=== PATIENT | male | born 1960 | race Caucasian/White ===

== ENCOUNTER → 2018-04-16 08:00 | Outpatient (CLI) | payer OTHER, SELFPAY ==
--- NOTE | 2018-04-16 08:00 | PROSBIL_PTH ---
PATIENT: GRAY GIBBS LOC: [facility] U#:[id number] AGE/SX: 65/M ROOM: RE04/16/[address]: Dr. Clayton Le MD : 1960 BED: DIS: SPEC #: [id number] RECD: 04/16/18 17:09 STATUS: LEOBARDO HOOD #: [id number] ATUL: 04/16/18 08:[address]: Clayton Le DEPT: SURGICAL PATHOLOGY RECD BY: Tim Quevedo ENTERED: 04/17/18 10:22 SP TYPE: PROST BX MARLINE DR: Lisa Bautista, MEASURING MACHINE OPERATOR-C Tissues: A - PROSTATE RIGHT B - PROSTATE RIGHT C - PROSTATE RIGHT D - PROSTATE LEFT E - PROSTATE LEFT F - PROSTATE LEFT Procedures: PROSTATE BX HEADER OPERATION: Prostate biopsy PRE-OP DIAGNOSIS: Elevated PSA TISSUE SUBMITTED: A - Right apex, B - Right mid, C - Right base, D - Left apex, E - Left mid, F - Left base MICROSCOPIC DIAGNOSIS A. Right prostate, apex, core biopsy: Prostatic adenocarcinoma: [place] grade: 3+3=6 Number of cores involved: 1 out of 3 Proportion of tissue involved: ~25% Perineural invasion: Not identified. Greatest tumor length: 0.4 cm B. Right prostate, mid, core biopsy: Prostatic adenocarcinoma: [place] grade: 3+4=7 Number of cores involved: 2 out of 2 Proportion of tissue involved: ~60% Perineural invasion: Not identified. Greatest tumor length: 0.8 cm, discontinuous Focal high-grade prostatic intraepithelial neoplasia (HGPIN). C. Right prostate, base, core biopsy: Prostatic adenocarcinoma: [place] grade: 4+3=7 Number of cores involved: 2 out of 2 Proportion of tissue involved: >95% Perineural invasion: present, focal Greatest tumor length: 1 cm Focal high-grade prostatic intraepithelial neoplasia (HGPIN). D. Left prostate, apex, core biopsy: Prostatic tissue, negative for malignancy. E. Left prostate, mid, core biopsy: Prostatic tissue, negative for malignancy. F. Left prostate, base, core biopsy: Prostatic adenocarcinoma: [place] grade: 3+3=6 Number of cores involved: 1 out of 3 Proportion of tissue involved: ~40% Perineural invasion: Not identified. Greatest tumor length: 0.7 cm, discontinuous Focal high-grade prostatic intraepithelial neoplasia (HGPIN). SJ:johnny 04/20/18 COMMENT Case has been reviewed in consultation with Dr. Maldonado who concurs with the above diagnosis. [id number] MICROSCOPIC DESCRIPTION Slides are reviewed. GROSS DESCRIPTION A - Received is one container designated prostate, right apex. The specimen consists of three elongated fragments of light barnett-white soft tissue measuring 0.5 to 1 cm in length and 0.1 cm in diameter. The specimen is totally submitted in one cassette. B - Received is one container designated prostate, right mid. The specimen consists of two elongated fragments of light barnett-white soft tissue each measuring 1.2 cm in length and 0.1 cm in diameter. The specimen is totally submitted in one cassette. C - Received is one container designated prostate, right base. The specimen consists of two elongated fragments of light barnett-white soft tissue each measuring 1 cm in length and 0.1 cm in diameter. The specimen is totally submitted in one cassette. D - Received is one container designated prostate, left apex. The specimen consists of two elongated fragments of light barnett-white soft tissue measuring 0.5 and 1 cm in length and 0.1 cm in diameter. The specimen is totally submitted in one cassette. E - Received is one container designated prostate, left mid. The specimen consists of one elongated fragment of light barnett-white soft tissue measuring 1 cm in length and 0.1 cm in diameter. The specimen is totally submitted in one cassette. F - Received is one container designated prostate, left base. The specimen consists of three elongated fragments of light barnett-white soft tissue each measuring 0.5 to 0.8 cm in length and 0.1 cm in diameter. The specimen is totally submitted in one cassette. / YENNY:johnny 04/17/18 TC:0 CPT: 16713 x6 ADDENDUM ADDENDUM ADDENDUM ADDENDUM ADDENDUM ADDENDUM ADDENDUM ADDENDUM 05/29/2018 11:03 ADDENDUM 05/29/2018 11:03 ADDENDUM 05/29/2018 11:03 ADDENDUM 05/29/2018 11:03 ADDENDUM 05/29/2018 11:03 An order for Oncotype testing was received from Dr. Ridley. This necessitated case review, block and slide selection by pathologist at [facility]. Genomic Prostate Score = 57 Results of the complete Oncotype testing ([employer] [employer] [facility] [employer] report) are viewable in EMR under: Reports - Pathology - Lab Pathology Report, Scanned.
--- OUTSIDE RECORDS SUMMARY | 2018-06-02 22:19 | XMS RPT_ITS ---
:1960 Author Organization OHIP Care Team Providers Name Role Phone JULIAN SEGOVIA, MS. JOSE JUAN Fitzgerald Attending Unavailable JULIAN SEGOVIA, MS. JOSE JUAN Fitzgerald Primary Care Unavailable DAVID WEBER CNP Attending Unavailable JULIAN SEGOVIA, MSParth MANZANO SParth Primary Care Unavailable TRUDI RIDLEY Attending Unavailable TRUDI RIDLEY Attending Unavailable Clayton Le Attending Unavailable Clayton Le Referring Unavailable Jose Juan Bautista [employer] Primary Care Unavailable Clayton Le Attending Unavailable Clayton Le Referring Unavailable Jose Juan Bautista [employer] Primary Care Unavailable Clayton Le Attending Unavailable Clayton Le Referring Unavailable Jose Juan Bautista [employer] LABORFrankyC Primary Care Unavailable PROBLEMS PROBLEMS DATE TYPE CONDITION / CODE ATTENDING STATUS SOURCE 04/15/2018 Active Unknown / TRUDI RIDLEY Active [facility] UNK(Unknown) [facility] Repository PROCEDURES PROCEDURES No Procedure Records FoundRESULTS RESULTS CNOV Observed: 05/18/2018 Status: COMPLETED Source: [place] 11:45 AM [facility] REPOSITORY Office Visit (UROLMD) GRAY GIBBS ([id number]) 1960 M Date Time Provider Department 05/18/18 11:45 AM TRUDI RIDLEY V UROLMD During your visit today, we recorded the following information about you: Weight Height 95.3 kg 1.829 m Manisha Burch Ma 05/18/2018 11:58 AM Signed Patient presents with: Established Patient: elevated PSA/second opinion/discuss cancer DX Referring Provider: SELF [200] Allergies As of Date: 05/18/2018 Noted Allergy Reaction SIMVASTATIN 05/18/2018 14 - Other: See Comments Comments: Muscle pain Date Reviewed: 04/15/2018 Reviewed by: Teagan Carter RN - Fully Assessed Reason for Visit: Established Patient [175] Cmt: elevated PSA/second opinion/discuss cancer DX Primary Visit Diagnosis:Prostate cancer (HCC) [C61] Other Visit Diagnosis:Elevated prostate specific antigen (PSA) [R97.20] Prescriptions as of 05/18/2018 Sig: ASPIRIN 81 MG TABLET,DELAYED * Take 81 mg by mouth once priyanka* CINNAMON ORAL Take by mouth. MAGNESIUM CITRATE ORAL Take by mouth. NIACIN ORAL Take by mouth. OMEGA 3-6-9 ORAL Take by mouth. VITAMIN E 400 UNIT CAPSULE Take 400 Units by mouth once * ZINC ACETATE ORAL Take by mouth. VITAMIN D3 ORAL Take by mouth. FENOFIBRATE MICRONIZED 134 MG* Take 134 mg by mouth once ki* Problem List As Of Date: 05/18/2018 (None) Visit Notes: >> Manisha Burch Ma Mon May 18, 2018 11:58 AM Status: Signed Patient presents with: Established Patient: elevated PSA/second opinion/discuss cancer DX Encounter Status:Closed by TRUDI RIDLEY MD, FACS, V on 05/18/18 PROGRESS Observed: 05/18/2018 Status: COMPLETED Source: [place] 12:00 AM [facility] REPOSITORY HNO ID: [id number] Author: Trudi Ridley V Service: Urology Author Type: Physician Type: Progress Notes Filed: 05/19/2018 11:49 AM Note Text: [facility] NOTE DEPARTMENT OF UROLOGY [place] NAME: RONNIE GIBBS NO.: [id number] DATE OF SERVICE: 05/18/2018 Patient last seen April 15, 2018. A 58-year-old male following up from the 2nd opinion regarding an elevated PSA from [facility] under the care of Dr. Le. Outside records were brought for presentation to discuss options for patient's management of recently diagnosed prostate cancer accompanied by his . Review of systems: Eyes, ears, nose, and throat, cardiovascular, respiratory, integumentary, neurological, extremities and abdominal systems are negative. Denies recreational drug use or smoking. We do know that his previous PSA was 7.0. He underwent a prostate biopsy in [facility] and the result came back showing 7/12 cores positive with several cores higher than 60% percentage of the core biopsy with malignancy and with [place] 6, [place] 7, 3+3 as well as 4+3 and Jalen 6 with high grade PIN. Patient was advised that in my estimation a radical prostatectomy would be the way to proceed. We discussed both incontinence and erectile dysfunction as well as penile shortening in all options related to complications regarding the surgery. Questions were answered and the reclarification of what he heard in [place] was attempted. We did discuss the benefit of obtaining genetic testing with [facility] genetic testing and he agrees that he would like to have that information. This will be submitted for evaluation. A CT scan of his abdomen and pelvis demonstrated no evidence of adenopathy but degenerative disease in his spine. No new PSA is available. He is able to maintain an erection. We discussed penile rehabilitation both pre-and post surgery. Genital examination is deferred. Eyes, ears, nose, and throat, cardiovascular, respiratory, integumentary, neurological, extremities and abdominal systems are within normal limits. The bulk of the conversation was spent in consultation regarding options, IMRT, interstitial brachytherapy, active surveillance. In my impression as Dr. Le's was that radical prostatectomy is how he should proceed. The genetic testing most likely give us just 1 more a bit of information to validate that decision. Questions were answered. Total consultation time was approximately 50 minutes. He will follow up after surgery. DISCHARGE DIAGNOSES: 1. [place] 6, and 7 prostate cancer with elements of 4+3. 2. Elevated prostate-specific antigen. Follow up as noted. DICTATED BY: Trudi Ridley M.D. GC/Domingo JOB# [id number] BONE SCAN WHOLE Observed: 05/01/2018 Status: F Source: [place] BODY 10:21 AM [facility] REPOSITORY [facility] Imaging Services [address] [place] [id number] Bone Scan Whole Body MR#: [id number] Acct: [id number] Name: GRAY GIBBS Rep #: [id number] : 1960 M 58 From: Giuseppe Lee DO PCP: Jose Juan Marc Status: REG CLI Study: Bone Scan Whole Body Date of Exam: 05/01/18 Exam# [id number] Ordering Dr: Clayton Le MD CLINICAL: 58-year-old male with reported history of carcinoma of the prostate. WHOLE BODY 99m Tc MDP RADIONUCLIDE BONE SCINTIGRAPHY COMPARISON: CT of the abdomen-pelvis report 04/24/2018 FINDINGS: Following the intravenous administration of 25.7 mCi of 99m Tc MDP, whole body bone images reveal: 1. Increased radiopharmaceutical concentration is identified in the mid-lower cervical spine posteriorly on the left and right, fifth lumbar vertebra posteriorly on the left and right, posterior midline sacrum, acromioclavicular and sternoclavicular compartments of both shoulders, bilateral elbow articulations, right-left knees. 2. The remaining skeletal structures are scintigraphically unremarkable with normal-appearing renal images and urinary bladder activity identified. NM/Bone Scan Whole Body IMPRESSION: 1. The increase in radiopharmaceutical concentration defined in the cervical and lumbar spine, sacrum, bilateral shoulder and elbow articulations, knees bilaterally is most consistent with degenerative arthritis. 2. There is no definitive typical scintigraphic evidence of skeletal metastatic disease on the current examination. Electronically Signed: Giuseppe Lee DO at 8:27 EST Tel , Service support , CC: Jose Juan ZAYAS; Clayton Le MD Blade Balancer: Signed CREATININE FINGERSTICK Collected: 04/24/2018 Status: F Source: [place] 5:49 PM [facility] REPOSITORY TYPE CODE TESTS RESULT OUT OF REFERENCE UNITS RANGE LAB L9100.0210 0.70-1.30 mg/dL High CREATININE WB 1.4 Performed By: #### L9100.0200 #### [facility] Point of Care [address] [place] [address] ABDOMEN/PELVIS WITH Observed: 04/24/2018 Status: F Source: [place] CONTRAST 5:39 PM [facility] REPOSITORY [facility] Imaging Services [address] [place] [address] Abdomen/Pelvis WITH Contrast MR#: [id number] Acct: [id number] Name: GRAY GIBBS Rep #: [id number] : 1960 M 58 From: Tyron Verduzco MD PCP: Jose Juan Marc Status: REG CLI Study: Abdomen/Pelvis WITH Contrast Date of Exam: 04/24/18 Exam# [id number] Ordering Dr: Clayton Le MD STUDY: CT ABDOMEN AND PELVIS WITH CONTRAST REASON FOR EXAM: Male, 58 years old. Prostate cancer. RADIATION DOSAGE (If Supplied By Facility): CTDIvol = ( 17.53 ) mGy, DLP = ( 1118.43 ) mGycm TECHNIQUE: Transaxial images were obtained from the dome of the diaphragm to the symphysis pubis without oral contrast. 100ML ml of Isovue 300 contrast was administered. Sagittal and coronal images were reconstructed. Individualized dose optimization techniques were used for this CT. COMPARISON: None. FINDINGS: The visualized lung bases are unremarkable. The visualized portions of the heart are within normal limits. Mild diffuse homogeneous hypoattenuation of the liver parenchyma. Calcified stone layering in a nondistended, nonthickened gallbladder. No biliary duct dilatation. Normal spleen. Normal pancreas. Normal bilateral adrenal glands. Hypoattenuated lesions within both kidneys measuring near water density. Normal bilateral ureters. Normal visualized stomach. Normal small intestine. Normal colon. The appendix is visualized and appears normal. Normal abdominal aorta. Normal inferior vena cava. Normal retroperitoneum. There is mild haziness of the root of the mesentery in the left mid abdomen with shotty mesenteric lymph nodes. Normal urinary bladder. Prostatic calcifications. Normal abdominal wall. Normal osseous structures. Multilevel degenerative change of the spine. Partial sacralization on the left at L5 with pseudoarthrosis noted. CT/Abdomen/Pelvis WITH Contrast IMPRESSION: 1. 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 2. Cholelithiasis with no evidence of acute cystitis. 3. Fatty infiltration of the liver. 4. Simple appearing bilateral renal cysts. Electronically Signed: Tyron Verduzco MD at 2:39 EST Tel , Service support , CC: Jose Juan Bautista NP-C; Clayton Le MD Blade Balancer: Signed PROSTATE BIOPSY Observed: 04/16/2018 Status: F Source: [place] BILATERAL 8:00 AM [facility] REPOSITORY Patient: GRAY GIBBS : 1960 (58/M) Acct Num: [id number] Phys: Mimi BAKER,Clayton Marin Unit Num: [id number] Loc: [facility] Specimen: [id number] Received: 04/16/18 2732 Spec Type: PROST BX TISSUES 1 TISSUES: A. PROSTATE RIGHT B. PROSTATE RIGHT C. PROSTATE RIGHT D. PROSTATE LEFT E. PROSTATE LEFT F. PROSTATE LEFT COMMENT Case has been reviewed in consultation with Dr. Maldonado who concurs with the above diagnosis. IDC:AM GROSS DESCRIPTION A - Received is one container designated prostate, right apex. The specimen consists of three elongated fragments of light barnett-white soft tissue measuring 0.5 to 1 cm in length and 0.1 cm in diameter. The specimen is totally submitted in one cassette. B - Received is one container designated prostate, right mid. The specimen consists of two elongated fragments of light barnett-white soft tissue each measuring 1.2 cm in length and 0.1 cm in diameter. The specimen is totally submitted in one cassette. C - Received is one container designated prostate, right base. The specimen consists of two elongated fragments of light barnett-white soft tissue each measuring 1 cm in length and 0.1 cm in diameter. The specimen is totally submitted in one cassette. D - Received is one container designated prostate, left apex. The specimen consists of two elongated fragments of light barnett-white soft tissue measuring 0.5 and 1 cm in length and 0.1 cm in diameter. The specimen is totally submitted in one cassette. E - Received is one container designated prostate, left mid. The specimen consists of one elongated fragment of light barnett-white soft tissue measuring 1 cm in length and 0.1 cm in diameter. The specimen is totally submitted in one cassette. F - Received is one container designated prostate, left base. The specimen consists of three elongated fragments of light barnett-white soft tissue each measuring 0.5 to 0.8 cm in length and 0.1 cm in diameter. The specimen is totally submitted in one cassette. / SJ:rg 04/17/18 TC:0 CPT: 89620 x6 HEADER OPERATION: Prostate biopsy PRE-OP DIAGNOSIS: Elevated PSA TISSUE SUBMITTED: A - Right apex, B - Right mid, C - Right base, D - Left apex , E - Left mid, F - Left base MICROSCOPIC DESCRIPTION Slides are reviewed. MICROSCOPIC DIAGNOSIS A. Right prostate, apex, core biopsy: Prostatic adenocarcinoma: Jalen grade: 3+3=6 Number of cores involved: 1 out of 3 Proportion of tissue involved: ~25% Perineural invasion: Not identified. Greatest tumor length: 0.4 cm B. Right prostate, mid, core biopsy: Prostatic adenocarcinoma: Jalen grade: 3+4=7 Number of cores involved: 2 out of 2 Proportion of tissue involved: ~60% Perineural invasion: Not identified. Greatest tumor length: 0.8 cm, discontinuous Focal high-grade prostatic intraepithelial neoplasia (HGPIN). C. Right prostate, base, core biopsy: Prostatic adenocarcinoma: Jalen grade: 4+3=7 Number of cores involved: 2 out of 2 Proportion of tissue involved: >95% Perineural invasion: present, focal Greatest tumor length: 1 cm Focal high-grade prostatic intraepithelial neoplasia (HGPIN). D. Left prostate, apex, core biopsy: Prostatic tissue, negative for malignancy. E. Left prostate, mid, core biopsy: Prostatic tissue, negative for malignancy. F. Left prostate, base, core biopsy: Prostatic adenocarcinoma: [place] grade: 3+3=6 Number of cores involved: 1 out of 3 Proportion of tissue involved: ~40% Perineural invasion: Not identified. Greatest tumor length: 0.7 cm, discontinuous Focal high-grade prostatic intraepithelial neoplasia (HGPIN). SJ:johnny 04/20/18 PSA RESULTS No results available. Signed Alex Solorzano MD 04/20/18 <signature on file> Performed By: #### PPROSBIL #### [facility] [address] [place], [address] CNOV Observed: 04/15/2018 Status: COMPLETED Source: [place] 1:00 PM [facility] REPOSITORY Office Visit (UROLMD) GRAY GIBBS ([id number]) 1960 M Date Time Provider Department 04/15/18 1:00 PM TRUDI RIDLEY V UROLMD During your visit today, we recorded the following information about you: Temperature Pulse Respiration Blood pressure 97.7 degrees 83/minute 16/minute 143/76 Weight Height 94.7 kg 1.829 m Referring Provider: SELF [200] Allergies As of Date: 04/15/2018 (Not on File) Date Reviewed: 04/15/2018 Reviewed by: Teagan Carter RN - Fully Assessed Reason for Visit: Consult [173] Primary Visit Diagnosis:Elevated prostate specific antigen (PSA) [R97.20] Other Visit Diagnosis:BPH with obstruction/lower urinary tract symptoms [N40.1, N13.8] Prescriptions as of 04/15/2018 Sig: FENOFIBRATE MICRONIZED 134 MG* Take 134 mg by mouth once ki* Problem List As Of Date: 04/15/2018 (None) Encounter Status:Closed by TRUDI RIDLEY MD, FACS, V on 04/15/18 PROGRESS Observed: 04/15/2018 Status: COMPLETED Source: [place] 12:00 AM [facility] REPOSITORY O ID: [id number] Author: Trudi Ridley V Service: Urology Author Type: Physician Type: Progress Notes Filed: 04/20/2018 1:28 PM Note Text: [facility] NOTE DEPARTMENT OF UROLOGY [place] NAME: RONNIE GIBBS NO.: [id number] DATE OF SERVICE: 04/15/2018 A 58-year-old male, self-referred for a 2nd opinion regarding an elevated PSA. Review of systems: Eyes, ears, nose, and throat, cardiovascular, respiratory, integumentary, neurological, extremities, abdominal system are negative. No previous urological evaluation. Accompanied by his . The patient is seen by Dr. Le in [place] who has him scheduled to have a prostate biopsy tomorrow, April 16, 2018. His previous PSA was 7.9. It was rechecked on February 12, 2018, and it came back at 7.0. He voids well. Erections are stable. He may elect to use Viagra in the future. The patient urinates well. No description of erection difficulties. Here to discuss the result of his recent PSA. First, we went ahead and did a genitourinary examination. Genitals are normal. Prostate is plus/minus to 1+ with a small area of firmness in the apex on the right lobe, which may be suspicious for early carcinoma. Remainder of the physical examination, eyes, ears, nose, and throat, cardiovascular, respiratory, integumentary, neurological, extremities, abdominal system within normal limits. I discussed at length sexuality, potential for incontinence, different things that can happen with the different [place] grades, surgical option, IMRT, interstitial brachytherapy, active surveillance; all options that are possible should the biopsy come back positive. I indicated they should follow up with the biopsy with the urologist that they already saw and I can certainly offer my opinion after they hear what is discussed with them in the near future. Questions were answered. Total time is 45 minutes. The patient will be seen potentially as an outpatient in the future. DISCHARGE DIAGNOSES: Elevated PSA with prostate biopsy pending with [facility] under the care of Dr. Le. Opinions rendered regarding his current status and options for potential future should the biopsy come back as positive. Follow up as noted. Total time 45 minutes. DICTATED BY: Trudi Ridley M.D. GC/Domingo JOB# [id number] PSA Collected: 02/12/2018 Status: F Source: [facility] 11:15 AM [facility] REPOSITORY TYPE CODE TESTS RESULT OUT OF REFERENCE UNITS RANGE LAB PSA(LOINC) 0.00-4.00 ng/mL High Prostate 7.00 Specific Antigen Performed By: #### PSA #### [place] [address] CBC Collected: 01/20/2018 Status: F Source: [facility] 10:21 AM [facility] REPOSITORY TYPE CODE TESTS RESULT OUT OF REFERENCE UNITS RANGE LAB WBC(LOINC) 4.60-10.80 10 3/mcL WBC 6.20 LAB RBCCT(LOINC 4.04-6.13 10 6/mcL ) RBC 4.75 LAB HGB(LOINC) 14.0-18.0 G/dL Hgb 15.2 LAB HCT(LOINC) 42.0-52.0 % Hct 42.9 LAB MCV(LOINC) 80.0-94.0 fL MCV 90.3 LAB MCH(LOINC) 27.0-31.2 pg High MCH 32.0 LAB MCHC(LOINC) 31.8-35.4 G/dL MCHC 35.4 LAB RDW(LOINC) 11.5-14.5 % RDW 13.1 LAB PLT(LOINC) 130-400 10 3/mcL Platelet 270 LAB MPV(LOINC) 7.4-10.4 fL MPV 7.8 Performed By: #### CBC, ADIFF, ANEU #### [address] [address] #### PSA, LIPID, CMP, GFR #### [address] [address] .AUTO DIFF Collected: 01/20/2018 Status: F Source: [facility] 10:21 AM [facility] REPOSITORY TYPE CODE TESTS RESULT OUT OF REFERENCE UNITS RANGE LAB ARCHIE(LOINC) 37.0-80.0 % Neutrophil % 64.1 LAB LYM(LOINC) 10.0-50.0 % Lymphocyte % 27.2 LAB MON(LOINC) 1.7-13.0 % Monocyte % 6.7 LAB EO(LOINC) 0.0-7.0 % Eosinophil % 1.2 LAB BAS(LOINC) 0.0-2.5 % Basophil % 0.8 LAB ABLYM(LOIN 0.77-3.85 10 3/mcL C) Lymphocyte, 1.70 Absolute LAB DIANN(LOINC 0.15-1.00 10 3/mcL ) Monocyte, 0.40 Absolute LAB AEOS(LOINC 0.00-0.40 10 3/mcL ) Eosinophil, 0.10 Absolute LAB ABAS(LOINC 0.00-0.19 10 3/mcL ) Basophil, 0.00 Absolute Performed By: #### CBC, ADIFF, ANEU #### [address] [address] #### PSA, LIPID, CMP, GFR #### [place] [address] .NEUABS Collected: 01/20/2018 Status: F Source: [facility] 10:21 AM [facility] REPOSITORY TYPE CODE TESTS RESULT OUT OF REFERENCE UNITS RANGE LAB ANEU(LOINC) 2.85-6.16 10 3/mcL Neutrophil, 4.00 Absolute Performed By: #### CBC, ADIFF, ANEU #### [address] [address] #### PSA, LIPID, CMP, GFR #### [place] [address] PSA Collected: 01/20/2018 Status: F Source: [facility] 10:21 AM [facility] REPOSITORY TYPE CODE TESTS RESULT OUT OF REFERENCE UNITS RANGE LAB PSA(LOINC) 0.00-4.00 ng/mL High Prostate 7.90 Specific Antigen Performed By: #### CBC, ADIFF, ANEU #### [address] [address] #### PSA, LIPID, CMP, GFR #### [address] [address] LIPID Collected: 01/20/2018 Status: F Source: [facility] 10:21 AM [facility] REPOSITORY TYPE CODE TESTS RESULT OUT OF REFERENCE UNITS RANGE LAB CHOL(LOINC 0-200 mg/dL ) Cholesterol 173 Result Comment: Cholesterol Reference Interval: Less than 200 Desirable 200-239 Borderline high risk 240 and above High risk LAB TRIG(LOINC) 0-150 mg/dL Triglycerides 141 Result Comment: Triglyceride Reference Interval: Less than 150 Normal 150-199 Borderline high risk 200-499 High risk 500 or higher Very high risk LAB HD(LOINC) 40-60 mg/dL HDL Low Cholesterol 32 LAB LDL(LOINC) 0-130 mg/dL LDL Cholesterol 113 Performed By: #### CBC, ADIFF, ANEU #### [address] [address] #### PSA, LIPID, CMP, GFR #### [place] [address] CMP Collected: 01/20/2018 Status: F Source: [facility] 10:21 AM [facility] REPOSITORY TYPE CODE TESTS RESULT OUT OF REFERENCE UNITS RANGE LAB GLU(LOINC) 70-105 mg/dL Glucose High Level 119 LAB NA(LOINC) 136-145 mmol/L Sodium Level 142 LAB K(LOINC) 3.5-5.1 mmol/L Potassium Level 4.2 LAB CL(LOINC) 98-107 mmol/L Chloride 106 LAB CO2(LOINC) 22-29 mmol/L CO2 26 LAB EBAL(LOINC mEq/L ) Electrolyte Balance 10.0 LAB BUN(LOINC) 7-18 mg/dL BUN High 23 LAB CRE(LOINC) 0.70-1.30 mg/dL Creatinine Lvl (s) 1.20 LAB BC(LOINC) 7-27 ratio BUN/Creatinine 19 Ratio LAB CA(LOINC) 8.4-10.2 mg/dL Calcium Lvl 9.0 LAB PROT(LOINC 6.4-8.2 G/dL ) Total Protein 7.1 LAB ALB(LOINC) 3.5-5.0 G/dL Albumin Level 4.2 LAB GLB(LOINC) G/dL Globulin 2.9 LAB AG(LOINC) 1.1-2.5 ratio A/G Ratio 1.4 LAB BILT(LOINC 0.2-1.0 mg/dL ) Bili Total 0.6 LAB AP(LOINC) 40-135 U/L Alk Phos 52 LAB AST(LOINC) 10-40 U/L AST/SGOT 34 LAB ALT(LOINC) 10-35 U/L ALT/SGPT High 57 Performed By: #### CBC, ADIFF, ANEU #### [address] [address] #### PSA, LIPID, CMP, GFR #### [address] [address] .GFR Collected: 01/20/2018 Status: F Source: [facility] 10:21 AM [facility] REPOSITORY TYPE CODE TESTS RESULT OUT OF REFERENCE UNITS RANGE LAB GFRAA(LOINC ml/min/1.73 ) sqm GFR 75 [place] Result Comment: GFR Population mean for , Non- Americans Ages 20-29 = 116 mL/min/1.73 sq.m. Ages 30-39 = 107 mL/min/1.73 sq.m. Ages 40-49 = 99 mL/min/1.73 sq.m. Ages 50-59 = 93 mL/min/1.73 sq.m. Ages 60-69 = 85 mL/min/1.73 sq.m. Ages 70+ = 75 mL/min/1.73 sq.m. Chronic Kidney Disease: Less than 60 mL/min/1.73 square meters End Stage Renal Disease: Less than 15 mL/min/1.73 square meters LAB GFRNO(LOINC) ml/min/1.73sqm GFR Non- 62 Result Comment: GFR Population mean for , Non- Americans Ages 20-29 = 116 mL/min/1.73 sq.m. Ages 30-39 = 107 mL/min/1.73 sq.m. Ages 40-49 = 99 mL/min/1.73 sq.m. Ages 50-59 = 93 mL/min/1.73 sq.m. Ages 60-69 = 85 mL/min/1.73 sq.m. Ages 70+ = 75 mL/min/1.73 sq.m. Chronic Kidney Disease: Less than 60 mL/min/1.73 square meters End Stage Renal Disease: Less than 15 mL/min/1.73 square meters Performed By: #### CBC, ADIFF, ANEU #### [facility] [place] [address] [place], [place] [address] #### PSA, LIPID, CMP, GFR #### [facility] [address] [place] [address] ALLERGIES ALLERGIES No Allergies Records FoundENCOUNTERS ENCOUNTERS ADMIT/DISCHARGE ACCOUNT NUMBER ADMITTING ENCOUNTER LOCATION SOURCE CLASS 05/18/2018/05/19/19 [id number] Ambulatory [address] Repository 05/01/2018 [id number] [facility] ding:[place] Repository 04/24/2018 [id number] [facility] ding:CT Repository 04/16/2018 [id number] [facility] ding:[facility] Repository 04/15/2018/04/21/[id number] Repository 02/12/2018/02/13/[id number] ding:[facility] Repository 01/20/2018/01/21/20 [id number] Ambulatory [address] ding:[facility] Repository PAYERS PAYERS ENCOUNTER GUARANTOR PAYER SUBSCRIBER SOURCE 05/01/2018 GRAY L Primary GRAY L Manohar [id number] Insurance:MEDICAL GERBERDOB: [facility] [id number]: Repository [address]Yly: [phone] [id number] [phone] () Date:[id number] [address] [place] [id number]: 05/01/2018 Secondary NOT GIVENUNK [place] Insurance:SELF PAY [facility] Number: Effective Repository Date:2018-04-21 04/24/2018 GRAY L Primary GRAY L [place] [id number] Insurance:MEDICAL GERBERDOB: [facility] [id number]: Repository [id number]: [phone] [id number] [phone] () Date:[id number] [address]WX: 04/24/2018 Secondary NOT GIVENUNK [place] Insurance:SELF PAY [facility] Number: Effective Repository Date:2018-04-21 04/16/2018 GRAY L Primary GRAY L [place] [id number] Insurance:MEDICAL GERBERDOB: [facility] [id number] Number: Repository [id number]: 330 [id number] [phone] () Date:[id number] [address]ZQ: 04/16/2018 Secondary NOT GIVENUNK [place] Insurance:SELF PAY [facility] Number: Effective Repository Date:2018-04-16 02/12/2018 GRAY L [facility]:MEDICAL GERBERDOB: [facility] [id number] [address] [id number] Repository [place] Number: [address] [place], [place] [id number] [place], [place] [address]Wrc: ([phone]) Date:2018-02-12 [id number]: [id number] [phone] ()Tel: ([phone]) Name:Kiara ACEVES () () [address] [place] [address] [phone] (WP) [id number]: 01/20/2018 GRAY L Primary GRAY L [facility] GERBERDOB: Insurance:MEDICAL GERBERDOB: [facility] [id number] [place] [address] [id number] Repository [place] Number: [address] [place] [id number] [address]Bzj: ([phone]) Date:2018-01-20 [id number]: [id number] [phone] ()Tel: 000) Name:SERENA ACEVES () (WP) [address], [place] [phone] (WP) [phone]:
== END ==
PROVIDERS: Family Provider Nurse Practitioner Primary Care; PCP Nurse Practitioner Primary Care; Referring Provider Urology; Visit Provider Urology
DX: R97.20 Elevated prostate specific antigen [PSA] (principal)
CPT/HCPCS: 88305; G0416

== ENCOUNTER → 2018-04-24 17:33 | Outpatient (CLI) | payer OTHER, SELFPAY ==
--- NOTE | 2018-04-24 17:39 | CT_ITS ---
STUDY: CT ABDOMEN AND PELVIS WITH CONTRAST REASON FOR EXAM: Male, 58 years old. Prostate cancer. RADIATION DOSAGE (If Supplied By Facility): CTDIvol = ( 17.53 ) mGy, DLP = ( 1118.43 ) mGycm TECHNIQUE: Transaxial images were obtained from the dome of the diaphragm to the symphysis pubis without oral contrast. 100ML ml of Isovue 300 contrast was administered. Sagittal and coronal images were reconstructed. Individualized dose optimization techniques were used for this CT. COMPARISON: None. FINDINGS: The visualized lung bases are unremarkable. The visualized portions of the heart are within normal limits. Mild diffuse homogeneous hypoattenuation of the liver parenchyma. Calcified stone layering in a nondistended, nonthickened gallbladder. No biliary duct dilatation. Normal spleen. Normal pancreas. Normal bilateral adrenal glands. Hypoattenuated lesions within both kidneys measuring near water density. Normal bilateral ureters. Normal visualized stomach. Normal small intestine. Normal colon. The appendix is visualized and appears normal. Normal abdominal aorta. Normal inferior vena cava. Normal retroperitoneum. There is mild haziness of the root of the mesentery in the left mid abdomen with shotty mesenteric lymph nodes. Normal urinary bladder. Prostatic calcifications. Normal abdominal wall. Normal osseous structures. Multilevel degenerative change of the spine. Partial sacralization on the left at L5 with pseudoarthrosis noted. CT/Abdomen/Pelvis WITH Contrast IMPRESSION: 1. 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 2. Cholelithiasis with no evidence of acute cystitis. 3. Fatty infiltration of the liver. 4. Simple appearing bilateral renal cysts. Electronically Signed: Tyron Verduzco MD at 2:39 EST Tel , Service support ,
[2018-04-24 17:56] LABS: CREATININE FINGERSTICK 1.4 mg/dL (0.70-1.30)
== END ==
PROVIDERS: Family Provider Nurse Practitioner Primary Care; PCP Nurse Practitioner Primary Care; Referring Provider Urology; Visit Provider Urology
DX: C61 Malignant neoplasm of prostate (principal)
CPT/HCPCS: 74177; Q9967

== ENCOUNTER → 2018-05-01 10:19 | Outpatient (CLI) | payer OTHER, SELFPAY ==
--- NOTE | 2018-05-01 10:21 | NM_ITS ---
CLINICAL: 58-year-old male with reported history of carcinoma of the prostate. WHOLE BODY 99m Tc MDP RADIONUCLIDE BONE SCINTIGRAPHY COMPARISON: CT of the abdomen-pelvis report 04/24/2018 FINDINGS: Following the intravenous administration of 25.7 mCi of 99m Tc MDP, whole body bone images reveal: 1. Increased radiopharmaceutical concentration is identified in the mid-lower cervical spine posteriorly on the left and right, fifth lumbar vertebra posteriorly on the left and right, posterior midline sacrum, acromioclavicular and sternoclavicular compartments of both shoulders, bilateral elbow articulations, right-left knees. 2. The remaining skeletal structures are scintigraphically unremarkable with normal-appearing renal images and urinary bladder activity identified. NM/Bone Scan Whole Body IMPRESSION: 1. The increase in radiopharmaceutical concentration defined in the cervical and lumbar spine, sacrum, bilateral shoulder and elbow articulations, knees bilaterally is most consistent with degenerative arthritis. 2. There is no definitive typical scintigraphic evidence of skeletal metastatic disease on the current examination. Electronically Signed: Giuseppe Lee DO at 8:27 EST Tel , Service support ,
== END ==
PROVIDERS: Family Provider Nurse Practitioner Primary Care; PCP Nurse Practitioner Primary Care; Referring Provider Urology; Visit Provider Urology
DX: C61 Malignant neoplasm of prostate (principal)
CPT/HCPCS: 78306

== ENCOUNTER 2018-07-15 05:59 | Day surgery (SDC) | payer OTHER, SELFPAY ==
[2018-07-02 10:17] VITALS: BP 131/83; PULSE 71; RESP 16; TEMP 36.6; O2SAT 97; BMI 28.4
--- NOTE | 2018-07-02 10:47 | SDCEKG_ITS ---
Test Reason : Blood Pressure : / mmHG Vent. Rate : 066 BPM Atrial Rate : 066 BPM P-R Int : 134 ms QRS Dur : 088 ms QT Int : 410 ms P-R-T Axes : 062 043 056 degrees QTc Int : 429 ms Normal sinus rhythm Normal ECG Confirmed by SIGRID BAKER, MELISSA ([id number]), newspaper or periodical editor MINO ADAMS ([id number]) on 07/06/2018 1:57:25 PM Referred By: Clayton Le Confirmed By:MELISSA MATTA MD
--- NOTE | 2018-07-14 17:10 | PCM.HP.BLA ---
History and Physical Date of Admission: 07/15/18 58 yo male with prostate cancer Jalen 7 (4+3), prostate 23 gm psa 7.0 several cores ++ with cancer bone scan is normal, CT scan normal, some arthritis in the back. Oncotype DX with high risk. Plan to proceed with radical prostatectomy. ALLERGIES: Simvastatin MEDICATIONS: Aspirin Cinnamon Fenofibrate Magnesium Niacin [place] 3 Vitamin D2 Vitamin E Zinc PSH: Prostate Needle Biopsy - 04/16/2018 Transrectal Biopsy US - 04/16/2018 NON- PSH: Colonoscopy Foot Surgery Knee Surgery (Unspecified) PMH: Malignant neoplasm of prostate - 05/12/2018 Elevated prostate specific antigen [PSA] - 02/04/2018 Nocturia Personal history of urinary calculi NON- PMH: None Immunizations: None FAMILY HISTORY: Diabetes - Runs in Family SOCIAL HISTORY: Marital Status: Preferred Language: Tamazight; Ethnicity: Not Or ; Race: White Current Smoking Status: Patient has never smoked. Tobacco Use Assessment Completed: Used Tobacco in last 30 days? Smoking cessation counseling was provided. Does not use smokeless tobacco. Social Drinker. Does not use drugs. Drinks 3 caffeinated drinks per day. Has not had a blood transfusion. REVIEW OF SYSTEMS: Constitutional: Patient denies fever, chills, weight loss, and weight gain. Eyes: Patient denies blurry vision, cataracts, and vision problems. Ears, Nose, Mouth, Throat: Patient reports sleep apnea. Patient denies hearing loss, sinus infections, and nasal stuffiness. Cardiovascular: Patient denies chest pains, swollen ankles, irregular heartbeat, and pacemaker/defibrillator. Respiratory: Patient reports cpap at night.. Patient denies shortness of breath, wheezing, use oxygen, and copd. Gastrointestinal: Patient denies abdominal pain, nausea/vomiting, and change in bowels. Genitourinary: Patient reports history of stones. Patient denies frequent urination, urinary retention, get up at night to void, leakage of urine, blood in urine, frequent urinary tract infections, difficulty starting stream, weak stream, and bedwetting. Musculoskeletal: Patient reports sore muscles. Patient denies back pain, gout, and arthritis. Integumentary/Skin: Patient reports rash. Patient denies persistent itching and skin cancer history. Neurological: Patient denies numbness, dizziness, stroke/tia, and history of falling/unsteadiness.. Hematologic/Lymphatic: Patient denies swollen glands, abnormal bleeding, transfusion history, and blood clots/dvt/pulmonary embolism. Notes: Reviewed previous review of systems 05/12/2018. No changes. VITAL SIGNS: 07/02/2018 09:30 AM Weight 212 lb / 96.16 kg Height 70 in / 177.8 cm BP 128/82 mmHg BMI 30.4 kg/m? PHYSICAL EXAMINATION: Anus and Perineum: No hemorrhoids. No anal stenosis. No rectal fissure, no anal fissure. No edema, no dimple, no perineal tenderness, no anal tenderness. Scrotum: No lesions. No edema. No cysts. No warts. Epididymides: Right: no spermatocele, no masses, no cysts, no tenderness, no induration, no enlargement. Left: no spermatocele, no masses, no cysts, no tenderness, no induration, no enlargement. Testes: No tenderness, no swelling, no enlargement left testes. No tenderness, no swelling, no enlargement right testes. Normal location left testes. Normal location right testes. No mass, no cyst, no varicocele, no hydrocele left testes. No mass, no cyst, no varicocele, no hydrocele right testes. Urethral Meatus: Normal size. No lesion, no wart, no discharge, no polyp. Normal location. Penis: Circumcised, no warts, no cracks. No dorsal Peyronie's plaques, no left corporal Peyronie's plaques, no right corporal Peyronie's plaques, no scarring, no warts. No balanitis, no meatal stenosis. Prostate: Prostate about 30 grams. Left lobe normal consistency, right lobe normal consistency. Symmetrical lobes. No prostate nodule. Left lobe no tenderness, right lobe no tenderness. Seminal Vesicles: Nonpalpable. Sphincter Tone: Normal sphincter. No rectal tenderness. No rectal mass. MULTI-SYSTEM PHYSICAL EXAMINATION: Constitutional: Well-nourished. No physical deformities. Normally developed. Good grooming. Neck: Neck symmetrical, not swollen. Normal tracheal position. Respiratory: No labored breathing, no use of accessory muscles. Cardiovascular: Normal temperature, normal extremity pulses, no swelling, no varicosities. Lymphatic: No enlargement of neck, axillae, groin. Skin: No paleness, no jaundice, no cyanosis. No lesion, no ulcer, no rash. Neurologic / Psychiatric: Oriented to time, oriented to place, oriented to person. No depression, no anxiety, no agitation. Gastrointestinal: No mass, no tenderness, no rigidity, non obese abdomen. Eyes: Normal conjunctivae. Normal eyelids. Ears, Nose, Mouth, and Throat: Left ear no scars, no lesions, no masses. Right ear no scars, no lesions, no masses. Nose no scars, no lesions, no masses. Normal hearing. Normal lips. Musculoskeletal: Normal gait and station of head and neck. PAST DATA REVIEWED: Source Of History: Patient 02/12/18 01/20/18 03/30/10 12/24/07 PSA Total PSA 7.00 7.90 2.2 1.8 PROCEDURES: Urinalysis - 54864 Dipstick Dipstick Cont'd Specimen: Voided Blood: Neg Appearance: Clear pH: 5.0 Color: Yellow Protein: Neg Glucose: Normal Urobilinogen: Neg Bilirubin: Neg Nitrites: Neg Ketones: Neg Leukocyte Esterase: Neg ASSESSMENT: ICD-10 Details 1 : Malignant neoplasm of prostate - C61 2 Elevated prostate specific antigen [PSA] - R97.20 PLAN: Schedule Procedure: Unspecified Date - Robotic Radical Prostatectomy - 56167 Document Letter(s): Created for Patient: Clinical Summary The risks, benefits, and some of the possible complications of the proposed procedure were discussed with the patient at length and in detail including the possibility of performing an open radical retropubic prostatectomy, postoperative urinary urgency, frequency, stress incontinence, urge incontinence, dysuria, hematuria, urinary retention, bladder neck contracture, urethral stricture, dilation of the urethra, postoperative catheterization, placement of a ureteral stent, erectile dysfunction, lack of ejaculation, and others. The possibility of having a positive tissue margin as well as the possible need for further surgical procedures was discussed with the patient. The possible need for postoperative treatments including further surgical procedures, chemotherapy, immunotherapy, radiation therapy, and others was discussed with the patient. The possibility that this operative procedure might not to cure the underlying disease, that micrometastatic disease might already be present, and that this underlying disease might result in the of the patient was discussed. The general risks of the operative procedure and the perioperative period were discussed with the patient at length and in detail including swelling, pain, nausea, vomiting, fever, chills, infection, wound infection, sepsis, renal failure, internal or external bleeding, intraoperative bowel, organ or vascular injuries, postoperative formation of scar tissue, the need for blood transfusions, deep venous thrombosis or blood clots, pulmonary embolus, pneumonia, respiratory failure, heart attack, stroke, and others. All of the patient's questions were answered and he voiced an understanding of these risks, benefits and possible complications. The patient gave fully informed consent to proceed with the procedure. Notes: Prostate cancer discussion. PSA 7.0 Today discussed options given young age and Anvik 7 (4+3 ) disease, high volume disease I would recommend he consider radical prostatectomy with bilateral nerve sparing and nerve monitory during surgery. We talked about the risk of surgery including loss of erection and stress incontinence, failure to cure, needing salvage XRT or chemotherapy or hormone therapy.
[2018-07-15] VITALS (15 sets, daily range): BP systolic 102–134; BP diastolic 53–84; PULSE 69–94; RESP 16–20; TEMP 35.5–37.2; O2SAT 93–100; BMI 28.4
--- NOTE | 2018-07-15 | PROST_PTH ---
PATIENT: GRAY GIBBS LOC: [facility] [place] U#:[id number] AGE/SX: 58/M ROOM: RE07/15/[address]: Dr. Clayton Le MD : [id number] BED: DIS: 07/16/2018 SPEC #: [id number] RECD: 07/15/18 09:40 STATUS: LEOBARDO RESendy #: [id number] ATUL: 07/15/18 00:[address]: Clayton Le DEPT: SURGICAL PATHOLOGY RECD BY: Ciara Ochoa ENTERED: 07/15/18 10:12 SP TYPE: PROSTATE OTHR DR: Lisa Bautista, GLASS SELECTOR-C Tissues: A - Lymph node of pelvis, NOS B - Lymph node of pelvis, NOS C - Prostate, NOS D - Prostate, NOS Procedures: Frozen Section (charge) Frozen Section Add'l ([facility]) Surgery Specimen Level IV Surgery Specimen Level V Surgery Specimen Level HEADER OPERATION: Laparoscopic robotic radical prostatectomy with IOC PRE-OP DIAGNOSIS: Malignant neoplasm of prostate; elevated PSA TISSUE SUBMITTED: A - Left pelvic lymph node sent to lab for frozen at 0932, B - Right pelvic lymph node sent to lab for frozen at 0932, C - Prostate, D - Fat over prostate FROZEN SECTION DIAGNOSIS A. Left pelvic lymph nodes, biopsy: Three out of three lymph nodes negative for carcinoma. B. Right pelvic lymph node, biopsy: One out of one lymph node negative for carcinoma. AM:johnny 07/15/18 Case has been reviewed in consultation with Dr. Solorzano who concurs with the above diagnosis. IDC:SJ MICROSCOPIC DIAGNOSIS A. Left pelvic lymph nodes, biopsy: Three out of three lymph nodes, negative for carcinoma. B. Right pelvic lymph node, biopsy: One lymph node, negative for carcinoma. C. Prostate, radical prostatectomy: Prostatic adenocarcinoma. D. Fat over prostate: Mature adipose tissue, negative for carcinoma. SJ:johnny 07/17/18 PROSTATE CANCER (RADICAL) SUMMARY: (Including specimens A-D) Procedure - radical prostatectomy Prostate size - 4.5 cm transversely, 3.7 cm anterior-posteriorly, 3.5 cm craniocaudally Prostate weight - 38 gm Lymph node sampling - pelvic lymph node dissection. Histologic type - adenocarcinoma (acinar, not otherwise specified) Histologic grade (Jalen Pattern): Primary pattern - 4 Secondary pattern - 3 Tertiary pattern - not applicable Total Oglesby score - 7 Tumor Quantitation: Proportion (%) of prostate involved by tumor - ~30% Extraprostatic extension - present, focal (right lateral and posterior surface) Seminal vesicle invasion - not identified Margins - margins uninvolved by invasive carcinoma. Treatment effect on carcinoma - there is no known presurgical therapy. Lymph-Vascular invasion - not identified Perineural invasion - present, extensive Regional lymph nodes: Number examined - 4 Number involved - 0 Distant metastasis - not applicable Additional pathologic findings - high-grade prostatic intraepithelial neoplasia. - Benign nodular prostatic hyperplasia. Ancillary studies - not performed. PATHOLOGIC STAGE: pT3a pN0 Mx The above summary is in compliance with [employer] [place] Pathology (CAP) Cancer Protocols Checklist and [place] Joint Committee on Cancer (AJCC), Staging Manual, 8th Ed. COMMENT Please make reference to previous specimen ([id number]) right prostate, apex, right prostate, mid, right prostate, base and left prostate, base with diagnosis of adenocarcinoma. The tumor involves extensively right lobe involving apical, mid and basal portion of the prostate and measures 2 x 1 cm in greatest dimension, measured microscopically (slides #6, 7, 11, 12, 15, 16, and 18). The tumor in the left lobe of the prostate also involves apical, mid and basal portion of prostate and measures 1 x 0.5 cm, measured microscopically (slides #8, 9, 10, 13, 14, 17 and 19. Case has been reviewed in consultation with Dr. Maldonado who concurs with the above diagnosis. IDC:AM MICROSCOPIC DESCRIPTION Slides are reviewed. GROSS DESCRIPTION A - Received fresh for frozen section diagnosis labeled with the patient's name is a specimen designated left pelvic lymph node. The specimen consists of a piece of adipose tissue measuring 5 x 3.5 x 1 cm. Three nodules consistent with lymph nodes are noted measuring 1 to 2.3 cm in greatest dimension. The lymph nodes are submitted in entirety for frozen section diagnosis as follows: 1 - frozen section, two lymph nodes, 2 - frozen section, one bisected lymph node. / AM: 07/15/18 B - Received fresh for frozen section diagnosis labeled with the patient's name is a specimen designated right pelvic lymph node. The specimen consists of a piece of adipose tissue measuring 4 x 2 x 1 cm. One lymph node is identified measuring 2.5 cm in greatest dimension and submitted entirely for frozen section diagnosis in two cassettes. / AM: 07/15/18 C - Received in fixative is one container labeled with the patient's name and designated prostate. The specimen consists of a prostate with attached seminal vesicles and vas deferens weighing 38 gm. The prostate gland measures 4.5 cm transversely, 3.7 cm anterior-posteriorly and 3.5 cm craniocaudally. The attached seminal vesicles and vas deferens measure 4.5 x 4.5 x 1 cm. The external surface of the prostate gland is smooth and glistening. No mass lesions are palpated. The specimen is differentially inked as follows: anterior - red, right half - blue, left half - green and posterior surface - black. The prostate gland is cut from apex to base at approximately 4 to 5 mm intervals. No distinct mass lesion is identified. Cardroom Drawing Runner sections are submitted as follows: 1 - distal urethral margin (shave), 2??proximal urethral margin (bladder shave), 3 - seminal vesicles, 4 & 5 - most basal section of prostate, 6-9 - apex of gland, 1015 - mid portion of gland, 16-19 - base of gland. / AM: 07/16/18 D - Received in fixative is one container labeled with the patient's name and designated fat over prostate. The specimen consists of an irregular piece of yellow adipose tissue measuring 3.5 x 3 x 0.5 cm. No mass lesion is identified. The entire specimen is submitted in two cassettes. / SJ: 07/15/18 TC:0 CPT: 27653 x2, 33685, 11311, 62080 x2, 25751 x2
--- NOTE | 2018-07-15 08:07 | DCINST_ITS ---
Discharge Diet: Light diet - advance as tolerated Discharge Activity: May not drive while taking narcotic pain medications., May Shower Call your doctor if your incision/area has: Continuous Slow Oozing, Sudden Increased Bleeding, Increased Pain/ Swelling, Increased Redness, Foul Smelling Discharge, Swelling at the incision site Call your doctor if you observe: Fever of 101 or Higher, Uncontrolled pain Suture Line Care: Avoid Pulling/Pushing, Avoid Pinching/Bending Instructions: Discharge Instructions for Radical Prostatectomy Allergies/Adverse Reactions: Allergies simvastatin Allergy (Verified 07/02/18 10:09) Pain in joints Medications to take at Discharge Aspirin [Aspir 81] 81 mg PO DAILY 07/02/18 Cholecalciferol (VIT D3) [Vitamin D] 1,000 unit PO DAILY 07/02/18 Cinnamon Bark [Cinnamon] 1 cap PO DAILY 07/02/18 Fenofibrate,Micronized [Fenofibrate] 134 mg PO DAILY 07/02/18 Gluc/MSM/C/[place]anganes/Prim [Joint Support Complex Softgel] 1 each PO DAILY 07/02/18 Krill/Om-3/Dha/Epa/Phospho/Ast [Krill Oil 1,000 mg Softgel] 1 each PO DAILY 07/02/18 Magnesium 250 mg PO DAILY 07/02/18 Niacin 2 tab PO DAILY 07/02/18 Vitamin E 400 unit PO DAILY 07/02/18 Zinc 50 mg PO DAILY 07/02/18 Primary Care Physician: Lisa Bautista NP-C [Primary Care Provider] - Test Results: Test results from this visit will be discussed in further detail at your follow- up appointment, if applicable. Please Follow Up With: Clayton Le MD When: please call to make an appointment. Proposed Discharge Date: 07/16/18
[2018-07-15] MEDS: Cefazolin 2 GM in 0.9% Normal Saline 100 ML IV (08:08)
--- NOTE | 2018-07-15 11:58 | PCM.OPRPT ---
Report of Operation Date of Procedure: 07/15/18 Pre-Operative Diagnosis: Prostate cancer Post-Operative Diagnosis: Same Surgery/Procedure Performed:: Laparoscopic robotic assisted radical prostatectomy, bilateral pelvic lymph node dissection, suture suspension of the urethra, EMG monitoring of pelvic nerves Description of Surgical Findings:: 58-year-old male taken back to the operating room after smooth induction of general anesthesia he was placed supine on the table in the dorsolithotomy position the penis and testicles and abdomen was shaved and prepped and draped in usual sterile fashion used a small incision inside the umbilicus advanced the Veress needle into the peritoneal cavity and insufflated the peritoneal cavity with CO2 gas and placed my camera trocar right left robotic trocar and inventory assistant trocar and the suction trocar and also the air seal port. First dissected the colon off the lateral sidewall then dissected then retracted the colon out of the deep pelvis I then incised the peritoneum over the vas deferens and seminal vesicles I dissected out the vas deferens and seminal vesicles below the prostate in the deep pelvis once these were freed up and I made a space below the prostate above the do not be his fascia down to the apex of the prostate I then pulled out of the pelvis dropped the bladder created the space of Retzius went to the right side and performed the lymph node dissection in the right pelvic lymph nodes these were enlarged lymph nodes he was sent for frozen there and came back negative then went to the left side perform the liposuction of the left side goes again there were lymph nodes palpable these were sent for frozen these came back negative after doing the lymph node dissection of the left and right side and I inside incised the endopelvic fascia I took the dorsal vein with a stitch came to the bladder neck dissected between the bladder neck and the prostate all the way down to the urethra and the and the Lopez catheter I then dissected most forth most more posterior between the bladder neck and the prostate until I came to the seminal vesicle vas deferens. We then dropped an EMG electrodes into the pelvis we checked the nerve conduction on the right side nerve conduction the left side these action potentials were intact I then dissected the right pedicle clip in the pedicle and then then dissect the neurovascular bundle off the right prostate posteriorly all the way up to the apex we then checked the EMG electrodes on the right side and these were intact I then went to the left side and took the pedicle on the left side with clips and then carefully dissected the neurovascular bundle off the posterior aspect of the left prostate all the way up to the apex again this was spared nicely we did check the eMG again and check for EMG potential at this was spared on the left side as well. I then transected through the dorsal vein complex at the place an extra stitch in the dorsal vein complex transected through the urethra and then took the prostate out and was put in Endo Catch bag we then performed anastomosis suspension of the urethra to the stump in order to suit suspend the urethra this was done over a catheter after this was completed and Lopez catheter was in place we flushed the bladder there was no leakage from the anastomosis suspension of the urethra was completed. We then extracted the prostate through the umbilical port we undocked the robot took all the ports closed the umbilical port with interrupted 0 Vicryls and closed the 1012 port with air seal was with a Vicryl stitch and then the subcuticular stitches were used to close all the incisions patient anesthetic is currently being reversed. Type of Anesthesia:: General Estimated Blood Loss (mL): 700cc - Admit VTE Documentation VTE Present on Admission: No VTE Mechan Device Prophylaxis: SCD's
[2018-07-15] MEDS: Bupivacaine Mpf 0.5% 30 ML VIAL (12:00)
[2018-07-15] MEDS: Ketorolac 15 MG/ML Vial IV ×2 (13:48→20:27)
[2018-07-15] MEDS: Ciprofloxacin 400 MG/200 ML BAG 200 MG IV (14:56)
[2018-07-15] MEDS: Lactated Ringers 1,000 ML 125 ML IV (14:56)
[2018-07-15] MEDS: Acetaminophen 500 MG Tablet PO (15:02)
[2018-07-15] MEDS: Ondansetron 4 MG/2 ML Vial IV (15:33)
[2018-07-15] MEDS: Docusate Sodium 100 MG Capsule PO (20:27)
[2018-07-16] MEDS: Lactated Ringers 1,000 ML 125 ML IV ×2 (00:01→08:21)
[2018-07-16 01:54] VITALS: BP 113/65; PULSE 81; RESP 18; TEMP 36.7; O2SAT 94
[2018-07-16] MEDS: Ketorolac 15 MG/ML Vial IV ×3 (01:57→13:59)
[2018-07-16] MEDS: Ciprofloxacin 400 MG/200 ML BAG 200 MG IV (01:57)
[2018-07-16] MEDS: Acetaminophen 500 MG Tablet PO (03:48)
[2018-07-16 07:37] LABS: Hemoglobin 11.2 g/dl (13.0-16.5); Mean Corp Hgb Conc 32.9 g/gl (32-36); Mean Corpuscular Hgb 30.2 pg (27.0-32.0); Mean Corpuscular Volume 91.6 fL (80-94); Mean Platelet Vol. 9.5 fl (6.2-12.0); Platelet Count 164 K/mm3 (150-450); RBC Distribution Width CV 13.7 % (11.6-14.6); RBC Distribution Width SD 44.9 fl (35.1-43.9); Red Blood Count 3.71 M/mm3 (4.6-6.2); White Blood Count 6.2 K/mm3 (4.4-11.0)
[2018-07-16 07:38] LABS: Scan Indicated on CBC? Y/N NO
[2018-07-16 07:50] VITALS: BP 110/57; PULSE 86; RESP 18; TEMP 36.7; O2SAT 96
[2018-07-16 07:53] VITALS: PULSE 88
[2018-07-16 08:07] LABS: Anion Gap 5 (5-15); BUN 17 mg/dL (7-18); Calcium,Total 7.7 mg/dL (8.5-10.1); Chloride 108 mmol/L (98-107); Creatinine, Serum 1.13 mg/dL (0.70-1.30); EST Glomerular Filtration Rate 71 mL/min (>60); Est Glom Filt Rate - Afr Amer 85 mL/min (>60); Estimated Creatinine Clearance 77.26 ml/min; Glucose 102 mg/dL (74-106); Potassium 3.7 mmol/L (3.5-5.1); Sodium Level 138 mmol/L (136-145)
[2018-07-16] MEDS: Magnesium Oxide 400 MG Tablet PO (08:12)
[2018-07-16] MEDS: Niacin SA 500 MG Tablet 1000 MG PO (08:12)
[2018-07-16] MEDS: Pantoprazole Sodium 20 MG Tablet PO (08:12)
[2018-07-16] MEDS: Vitamin E 400 UNITS Capsule PO (08:13)
[2018-07-16] MEDS: Fenofibrate 145 MG Tablet PO (08:13)
[2018-07-16] MEDS: 0.9% NaCl Peripheral Flush Adult/Peds IV (08:15)
[2018-07-16] MEDS: Magnesium Hydroxide 30 ML UDC 15 ML PO (10:25)
[2018-07-16] MEDS: Docusate Sodium 100 MG Capsule PO (10:26)
[2018-07-16 12:55] VITALS: BP 135/73; PULSE 92; RESP 16; TEMP 37.2; O2SAT 92
--- NOTE | 2018-07-16 15:49 | NURSING ---
1445 Pt and S.O. were taught on how to change tian to leg bag and back to tian bag. Both verbalized understanding and denied questions.
== END 2018-07-16 14:50 | disposition home or self-care (01) ==
LOC: SDC 06:00 → AC 06:00 → MS2 13:05
PROVIDERS: Family Provider Nurse Practitioner Primary Care; PCP Nurse Practitioner Primary Care; Referring Provider Urology; Visit Provider Urology
PROC: 0VT04ZZ Resection of Prostate, Percutaneous Endoscopic Approach (ICD-10-PCS; CPT 55866; principal; 2018-07-15 07:40)
DX: C61 Malignant neoplasm of prostate (principal); R97.20 Elevated prostate specific antigen [PSA]; E78.00 Pure hypercholesterolemia, unspecified; G47.33 Obstructive sleep apnea (adult) (pediatric); M46.90 Unspecified inflammatory spondylopathy, site unspecified; Z79.899 Other long term (current) drug therapy; Z79.82 Long term (current) use of aspirin; Z87.442 Personal history of urinary calculi
CPT/HCPCS: 38571; 51992; 55866; 36415; 80048; 85027; 86850; 86900; 88305; 88307; 88309; 88331; 88332; 93005; J7120; A4216; J0744; J2405

== ENCOUNTER → 2020-03-14 | Outpatient (CLI) | payer OTHER, SELFPAY ==
[2018-07-15 14:38] VITALS: BMI 28.4
[2020-03-14 15:26] LABS: Absolute Lymphocyte Count 1.34 X10^3/uL (0.83-4.51); Absolute Neutrophil Count 3.4 X10^3/uL (2.0-7.7); Basophil# 0.04 X10^3/uL; Basophil% 0.8 % (0-1); Eosinophil# 0.09 X10^3/uL; Eosinophils% 1.7 % (0-5); Hematocrit 42.7 % (40-54); Hemoglobin 14.2 g/dL (13.0-16.5); Lymphocyte # 1.34 X10^3/ul (4.0); Lymphocyte % 25.7 % (19-41); Mean Corp Hgb Conc 33.3 g/dL (32-36); Mean Corpuscular Hgb 30.9 pg (27.0-32.0); Monocyte# 0.35 X10^3/uL; Monocyte% 6.7 % (0-10); NRBC Flagged by Analyzer 0 % (0-5); Neutrophil # 3.37 X10^3/uL (2.7-7.7); Neutrophil % 64.7 % (47-70); Platelet Count 218 K/mm3 (150-450); RBC Distribution Width CV 13.2 % (11.6-14.6); RBC Distribution Width SD 45.1 fl (35.1-43.9); Red Blood Count 4.59 M/mm3 (4.6-6.2); White Blood Count 5.2 K/mm3 (4.4-11.0)
[2020-03-14 16:30] LABS: Creatinine, Serum 1.22 mg/dL (0.70-1.30); EST Glomerular Filtration Rate 64 mL/min (>60); Est Glom Filt Rate - Afr Amer 78 mL/min (>60); PSA,Total- Diagnostic 0.19 ng/mL (0.0-4.0)
== END | disposition home or self-care (01) ==
LOC: BIMLAB 13:52
PROVIDERS: PCP Nurse Practitioner Primary Care; Referring Provider Radiology Radiation Oncology; Visit Provider Radiology Radiation Oncology
DX: Z01.818 Encounter for other preprocedural examination (principal); C61 Malignant neoplasm of prostate
CPT/HCPCS: 36415; 82565; 84153; 85025

== ENCOUNTER → 2020-03-15 12:48 | Outpatient (CLI) | payer OTHER, SELFPAY ==
[2018-07-15 14:38] VITALS: BMI 28.4
--- NOTE | 2020-03-15 13:02 | CT_ITS ---
STUDY: CT PELVIS WITH CONTRAST REASON FOR EXAM: Male, 60 years old. PROSTATE RADIATION PLANNING RADIATION DOSAGE (If Supplied By Facility): CTDIvol = ( 24.56 ) mGy, DLP = ( 952.68 ) mGycm TECHNIQUE: Transaxial imaging of the pelvis was performed with oral contrast. Oral and amp; IV READII-CAT and amp; 100ML ISOVUE 300 was administered intravenously. Individualized dose optimization techniques were used for this CT. COMPARISON: Comparison is made with prior study dated 04/24/2018. FINDINGS: Normal urinary bladder. The patient is status post prostatectomy. Metallic radiation seeds are seen within the prosthetic bed. Normal visualized small intestine. There are scattered colonic diverticula of the sigmoid colon consistent with chronic diverticulosis. There is no pelvic fluid. There is no pelvic lymphadenopathy or mass lesion. There is diffuse atherosclerotic calcification of the pelvic arteries. Small umbilical hernia containing fat. There are degenerative changes of the visualized lumbar spine. There is evidence of degenerative changes with the anterior spur formation of the left sacroiliac joint. CT/Abdomen/Pelvis WITH Contrast IMPRESSION: Status post prostatectomy. Metallic radiation seeds are seen in the prostatic bed. Electronically Signed: Rex Rico, at 14:10 EST , Service support ,
== END ==
PROVIDERS: PCP Nurse Practitioner Primary Care; Referring Provider Radiology Radiation Oncology; Visit Provider Radiology Radiation Oncology
DX: C61 Malignant neoplasm of prostate (principal)
CPT/HCPCS: 74177; Q9967

== ENCOUNTER → 2020-04-13 12:25 | Outpatient (CLI) | payer OTHER, SELFPAY ==
[2018-07-15 14:38] VITALS: BMI 28.4
[2020-04-13 15:15] LABS: Absolute Lymphocyte Count 0.79 X10^3/uL (0.83-4.51); Basophil# 0.03 X10^3/uL; Basophil% 0.7 % (0-1); Eosinophil# 0.07 X10^3/uL; Eosinophils% 1.6 % (0-5); Hematocrit 41.5 % (40-54); Hemoglobin 13.7 g/dL (13.0-16.5); Lymphocyte # 0.79 X10^3/ul (4.0); Lymphocyte % 18.5 % (19-41); Mean Corpuscular Hgb 30.8 pg (27.0-32.0); Mean Corpuscular Volume 93.3 fL (80-94); Mean Platelet Vol. 9.9 fl (6.2-12.0); Monocyte# 0.38 X10^3/uL; Monocyte% 8.9 % (0-10); NRBC Flagged by Analyzer 0 % (0-5); Neutrophil # 2.99 X10^3/uL (2.7-7.7); Neutrophil % 69.8 % (47-70); Platelet Count 169 K/mm3 (150-450); RBC Distribution Width CV 13.6 % (11.6-14.6); RBC Distribution Width SD 45.8 fl (35.1-43.9); Red Blood Count 4.45 M/mm3 (4.6-6.2); White Blood Count 4.3 K/mm3 (4.4-11.0)
== END ==
PROVIDERS: PCP Nurse Practitioner Primary Care; Referring Provider Radiology Radiation Oncology; Visit Provider Radiology Radiation Oncology
DX: C61 Malignant neoplasm of prostate (principal)
CPT/HCPCS: 36415; 85025

== ENCOUNTER → 2020-05-03 13:14 | Outpatient (CLI) | payer OTHER, SELFPAY ==
[2018-07-15 14:38] VITALS: BMI 28.4
[2020-05-03 15:42] LABS: Absolute Lymphocyte Count 0.66 X10^3/uL (0.83-4.51); Absolute Neutrophil Count 2.5 X10^3/uL (2.0-7.7); Basophil# 0.03 X10^3/uL; Basophil% 0.8 % (0-1); Eosinophil# 0.09 X10^3/uL; Eosinophils% 2.5 % (0-5); Hematocrit 41.1 % (40-54); Hemoglobin 14.2 g/dL (13.0-16.5); Lymphocyte # 0.66 X10^3/ul (4.0); Lymphocyte % 18.3 % (19-41); Mean Corp Hgb Conc 34.5 g/dL (32-36); Mean Corpuscular Hgb 32.3 pg (27.0-32.0); Mean Corpuscular Volume 93.4 fL (80-94); Monocyte# 0.36 X10^3/uL; NRBC Flagged by Analyzer 0 % (0-5); Neutrophil # 2.46 X10^3/uL (2.7-7.7); Neutrophil % 68.1 % (47-70); Platelet Count 189 K/mm3 (150-450); RBC Distribution Width CV 13.7 % (11.6-14.6); RBC Distribution Width SD 46.1 fl (35.1-43.9); White Blood Count 3.6 K/mm3 (4.4-11.0)
== END ==
PROVIDERS: PCP Nurse Practitioner Primary Care; Visit Provider Radiology Radiation Oncology
DX: Z00.00 Encounter for general adult medical examination without abnormal findings (principal)
CPT/HCPCS: 36415; 85025

== ENCOUNTER 2022-10-05 23:49 | Emergency (ER) | payer OTHER, SELFPAY ==
[2022-10-05 23:50] VITALS: BP 151/91; PULSE 71; RESP 16; TEMP 36.4; O2SAT 99; BMI 29.2
--- NOTE | 2022-10-06 01:15 | EKG12_ITS ---
Test Reason : CP Blood Pressure : / mmHG Vent. Rate : 068 BPM Atrial Rate : 068 BPM P-R Int : 134 ms QRS Dur : 088 ms QT Int : 430 ms P-R-T Axes : 017 035 042 degrees QTc Int : 457 ms Normal sinus rhythm Normal ECG Confirmed by SIGRID BAKER, MELISSA ([id number]), commissioning editor MELUQIADES DEGROOT ([id number]) on 10/07/2022 11:36:23 AM Referred By: DARRICK Confirmed By:MELISSA MATTA MD
[2022-10-06 01:18] VITALS: BP 146/67; PULSE 62; RESP 18; O2SAT 95
[2022-10-06 01:21] LABS: Absolute Lymphocyte Count 1.04 X10^3/uL (0.83-4.51); Absolute Neutrophil Count 3.4 X10^3/uL (2.0-7.7); Basophil# 0.06 X10^3/uL; Basophil% 1.2 % (0-1); Eosinophil# 0.17 X10^3/uL; Eosinophils% 3.4 % (0-5); Hematocrit 37.9 % (40-54); Hemoglobin 12.9 g/dL (13.0-16.5); Lymphocyte # 1.04 X10^3/ul (0.83-4.51); Lymphocyte % 20.9 % (19-41); Mean Corpuscular Hgb 31.6 pg (27.0-32.0); Mean Corpuscular Volume 92.9 fL (80-94); Monocyte# 0.34 X10^3/uL; Monocyte% 6.8 % (0-10); NRBC Flagged by Analyzer 0 % (0-5); Neutrophil # 3.35 X10^3/uL (2.7-7.7); Neutrophil % 67.5 % (47-70); Platelet Count 229 K/mm3 (150-450); RBC Distribution Width CV 13.2 % (11.6-14.6); Red Blood Count 4.08 M/mm3 (4.6-6.2)
--- NOTE | 2022-10-06 01:35 | RAD_ITS ---
STUDY: X-RAY CHEST REASON FOR EXAM: Male, 62 years old. Chest pain TECHNIQUE: Single AP portable view of the chest. COMPARISON: None. FINDINGS: The lungs are clear and expanded. There is no demonstrated pleural abnormality. Normal size heart. Normal mediastinum and kahlil. Normal visualized pulmonary arteries. Normal visualized aortic arch and descending thoracic aorta. Normal visualized thoracic spine. Normal visualized ribs, clavicles, and shoulders. There is no demonstrated abnormality of the visualized soft tissue structures of the upper abdomen. RAD/Chest 1 View (Portable) IMPRESSION: Normal x-ray examination of the chest. Electronically Signed: Marleen Osei MD at 2:04 EDT Reading Location ID and State: [facility] / [place] Tel , Service support ,
[2022-10-06 01:42] LABS: Anion Gap 9 (5-15); BUN 27 mg/dL (7-18); BUN/Creat Ratio 24.5 RATIO (10-20); Calcium,Total 8.7 mg/dL (8.5-10.1); Chloride 108 mmol/L (98-107); EST Glomerular Filtration Rate 72 mL/min (>60); Est Glom Filt Rate - Afr Amer 87 mL/min (>60); Estimated Creatinine Clearance 75.44 ml/min; Glucose 142 mg/dL (74-106); Potassium 3.3 mmol/L (3.5-5.1); Sodium Level 141 mmol/L (136-145); Troponin-I HS (w/2H Reflex) 7 pg/mL (3.0-78.0)
[2022-10-06] MEDS: Aspirin 325 MG Tablet PO (01:55)
[2022-10-06] MEDS: Orphenadrine 60 MG/2 ML Ampul IV (01:55)
[2022-10-06 02:18] LABS: D-Dimer Quantitative (DVT/PE) 0.32 FEU/ug/m (0.27-0.49)
[2022-10-06 02:30] LABS: Troponin-I HS 8 pg/mL (3.0-78.0)
[2022-10-06 02:58] VITALS: PULSE 66; RESP 20; O2SAT 95
[2022-10-06 03:00] VITALS: BP 132/71; PULSE 70; RESP 23; O2SAT 95
--- NOTE | 2022-10-06 03:00 | EDS_ITS ---
HPI History of Present Illness Chief Complaint: Chest Pain Narrative Narrative: Patient is a 62-year-old male with remote history of prostate CA and hyperlipidemia. He states that he and his are at a picnic today and they are helping the gas cleaning up when he went to lift some heavy wooden chairs. He states he bent over at the front of the chair and picked up from the arms he did not feel any sudden onset pain at this time but otherwise later noticed pain in his upper mid back that was wrapping around to his chest. He states there is no associated nausea vomiting diaphoresis shortness of breath associated with the pain. However he also feels that the pain does not worsen with motion and he is concerned this could be cardiac and therefore comes in for evaluation. [facility] Medical History (Updated 10/06/22 @ 08:[address] Ajit Bull, ) High cholesterol Prostate cancer Home Medications aspirin 81 mg tablet,delayed release (Aspir-) 81 mg PO DAILY heart health 07/02/18 [History Last Taken 06/28/18] cholecalciferol (vitamin D3) 25 mcg (1,000 unit) tablet (Vitamin D3) 1,000 unit PO DAILY supplement 07/02/18 [History Last Taken Unknown] cinnamon bark 500 mg capsule 1 cap PO DAILY supplement 07/02/18 [History Last Taken Unknown] fenofibrate micronized 134 mg capsule 134 mg PO DAILY cholesterol 07/02/18 [History Last Taken Unknown] glucosamine 500 mg-msm 100 mg-vit C 20 xp-midbg-eojf-primrose capsule (Joint Support Complex) 1 ea PO DAILY supplement 07/02/18 [History Last Taken Unknown] krill 1,000 mg-omega-3 170 mg-dha 50 mg-epa 80 [id number]-[id number]-qphvq capsule 1 ea PO DAILY supplement 07/02/18 [History Last Taken 06/28/18] magnesium 250 mg tablet 250 mg PO DAILY supplement 07/02/18 [History Last Taken Unknown] niacin 500 mg tablet 2 tab PO DAILY supplement 07/02/18 [History Last Taken Unknown] vitamin E 268 mg (400 unit) capsule 400 unit PO DAILY supplement 07/02/18 [History Last Taken Unknown] zinc 50 mg tablet 50 mg PO DAILY supplement 07/02/18 [History Last Taken Unknown] ciprofloxacin HCl 500 mg tablet 500 mg PO BID #20 tabs 07/15/18 [Rx Last Taken Unknown] ciprofloxacin HCl 500 mg tablet 500 mg PO BID #20 tabs 07/15/18 [Rx Last Taken Unknown] docusate sodium 100 mg capsule 100 mg PO BID #20 caps 07/15/18 [Rx Last Taken Unknown] docusate sodium 100 mg capsule 100 mg PO BID #20 caps 07/15/18 [Rx Last Taken Unknown] Allergy/AdvReac Type Severity Reaction Status Date / Time simvastatin Allergy Pain in Verified 07/02/18 10:09 joints Social History Smoking Status: Never smoker ROS ROS ED Constitutional Constitutional ED: Denies chills or fever(s) ENT ENT ED: Denies sore throat Cardiovascular Cardiovascular: Reports chest pain; Denies palpitations or racing heartbeat Respiratory/Chest Respiratory/Chest: Denies cough or dyspnea Gastrointestinal Gastrointestinal: Denies abdominal pain, diarrhea, nausea or vomiting Genitourinary Genitourinary ED: Denies dysuria Musculoskeletal Musculoskeletal: Reports back pain Integumentary Denies rash Neurologic Neurologic: Denies headache(s) Hematologic/Lymphatic Hematologic/Lymphatic: Denies easy bleeding or easy bruising EXAM Physical Exam Const Vital Signs: 10/05/22 23:50 10/06/22 01:18 10/06/22 01:19 Temperature 97.6 F L Temperature Source Temporal Pulse Rate 71 62 Respiratory Rate 16 18 Blood Pressure 151/91 H 146/67 H Blood Pressure Mean 111 93 Pulse Ox 99 95 Oxygen Delivery Method Room Air Room Air Room Air 10/06/22 02:58 10/06/22 03:00 Temperature Temperature Source Pulse Rate 66 70 Respiratory Rate 20 H 23 H Blood Pressure 132/71 H Blood Pressure Mean Pulse Ox 95 95 Oxygen Delivery Method Room Air Positive well nourished and well developed General Appearance ED: well developed HEENT Reports moist mucous membranes Eyes PERRL and EOMs intact bilaterally General Eye ED: Negative for scleral icterus Neck supple and no JVD Chest Wall palpation of chest normal Resp normal respiratory effort and clear to auscultation bilaterally Cardio regular rate and regular rhythm Rate: other Other Details: Radial pulses are plus 2 out of 4 bilaterally are equal and symmetric Carotid pulses are equal and symmetric as well GI normal to inspection, nondistended, normoactive bowel sounds, non-tender, non- distended and no masses GI Narrative: No voluntary guarding or rigidity no pulsatile mass Auscultation: normoactive bowel sounds Palpation: soft Back/Spine no CVA tenderness Back/Spine Narrative: No bony deformity or step-off of the thoracic or lumbar spine no midline pain on palpation. Extremity normal to inspection Extremity Narrative: No asymmetric edema no pitting edema negative Homans' sign bilaterally Neuro oriented x3 and CN's II-XII intact bilaterally Sensorium / Orientation: alert Psych mental status grossly normal Skin no rashes or lesions noted Skin Narrative: No overlying soft tissue changes to suggest trauma or infection MDM MDM MDM Narrative Medical decision making narrative: Patient presented to the ER in no acute distress with an atypical presentation for cardiovascular disease. However as differential diagnosis is acute coronary syndrome versus pneumonia versus pneumothorax versus pulmonary embolus or dissection a basic work-up was obtained. Chest x-ray revealed no acute lung pathology the patient's D-dimer is negative going against DVT/PE or dissection. His initial and delta troponins are normal at a value of 7 and 8. Therefore at this time his discomfort is atypical for cardiovascular disease work-up does not suggest this as a cause and therefore this is most likely musculoskeletal associated with him lifting a chair prior to the pain began. On reevaluation the patient is resting comfortably and has had mild improvement of symptoms with his Norflex and aspirin and therefore is otherwise safe for the History & Record Review Discussion w/independent historian: Patient and Significant other Lab Data Attestation: I reviewed the patient's lab results. Labs: Laboratory Results - last 24 hr 10/06/22 10/06/22 10/06/22 00:00 00:00 00:00 WBC 5.0 RBC 4.08 L Hgb 12.9 L Hct 37.9 L MCV 92.9 MCH 31.6 MCHC 34.0 RDW Std Deviation 45.0 H RDW Coeff of Attila 13.2 Plt Count 229 MPV 10.0 Immature Gran % (Auto) 0.200 Neut % (Auto) 67.5 Lymph % (Auto) 20.9 Sullivan % (Auto) 6.8 Eos % (Auto) 3.4 Baso % (Auto) 1.2 H Absolute Neuts (auto) 3.4 Absolute Lymphs (auto) 1.04 Nucleated RBC % 0 D-Dimer Quant (PE/DVT) 0.32 Sodium 141 Potassium 3.3 L Chloride 108 H Carbon Dioxide 24.0 Anion Gap 9 BUN 27 H Creatinine 1.10 Estim Creat Clear Calc 75.44 Est GFR (MDRD) Af Amer 87 Est GFR (MDRD) Non-Af 72 BUN/Creatinine Ratio 24.5 H Glucose 142 H Calcium 8.7 Troponin I High Sens 7 10/06/22 02:05 WBC RBC Hgb Hct MCV MCH MCHC RDW Std Deviation RDW Coeff of Attila Plt Count MPV Immature Gran % (Auto) Neut % (Auto) Lymph % (Auto) Sullivan % (Auto) Eos % (Auto) Baso % (Auto) Absolute Neuts (auto) Absolute Lymphs (auto) Nucleated RBC % D-Dimer Quant (PE/DVT) Sodium Potassium Chloride Carbon Dioxide Anion Gap BUN Creatinine Estim Creat Clear Calc Est GFR (MDRD) Af Amer Est GFR (MDRD) Non-Af BUN/Creatinine Ratio Glucose Calcium Troponin I High Sens 8 Radiography Diagnostic Testing: Clinical Impression(s) from Imaging Studies Chest X-Ray 10/06/22 01:35 IMPRESSION: Normal x-ray examination of the chest. Electronically Signed: Marleen Osei MD at 2:04 EDT , Chest x-ray as interpreted by the emergency medicine physician reveals no acute infiltrate pneumothorax or pleural effusion Discharge Plan Triage Chief Complaint: Chest Pain ED Provider: Ajit Bull Dx/Rx/DC Orders Clinical Impression: Nonspecific chest pain, History of hyperlipidemia Instructions: ED Chest Pain, Uncertain Cause, ED Thoracic Spine Strain Prescriptions: No Action aspirin [Aspir-81] 81 MG tablet,delayed release (DR/EC) 81 mg PO DAILY Label Comments: stopped for surgery fenofibrate micronized 134 MG capsule 134 mg PO DAILY niacin 500 MG tablet 2 tab PO DAILY magnesium 250 MG tablet 250 mg PO DAILY vitamin E 400 UNIT capsule 400 unit PO DAILY cinnamon bark 500 MG capsule 1 cap PO DAILY cholecalciferol (vitamin D3) [Vitamin D3] 1,000 UNIT tablet 1,000 unit PO DAILY [id number] 1 EACH capsule 1 ea PO DAILY [id number] [Joint Support Complex] 1 EACH capsule 1 ea PO DAILY zinc 50 MG tablet 50 mg PO DAILY ciprofloxacin HCl 500 MG tablet 500 mg PO BID Qty: 20 0RF docusate sodium 100 MG capsule 100 mg PO BID Qty: 20 0RF ciprofloxacin HCl 500 MG tablet 500 mg PO BID Qty: 20 0RF docusate sodium 100 MG capsule 100 mg PO BID Qty: 20 0RF Primary Care Provider: Lisa Bautista NP Referrals: Lisa Bautista NP, [facility] [Primary Care Provider] - Disposition Disposition: Home, Self Care Discharge Date/Time: 10/06/22 03:15
[2022-10-06 03:19] LABS: Reflex Troponin-HS? (from REC) Y
== END 2022-10-06 03:15 | disposition home or self-care (01) ==
PROVIDERS: Emergency Provider Emergency Medicine; PCP Nurse Practitioner Primary Care; Visit Provider Emergency Medicine
DX: R07.9 Chest pain, unspecified (principal); E78.00 Pure hypercholesterolemia, unspecified
CPT/HCPCS: 71045; 80048; 84484; 85025; 85379; 93005; 96374; 99285; A4216